=== PATIENT | male | born 1940 | race Caucasian/White ===

== ENCOUNTER 2017-10-15 08:55 | Outpatient (CLI) | payer MEDICARE, BC ==
[2017-10-15 09:48] LABS: BASOPHILS # (AUTO) 0.1 X10'3 (0-0.2); BASOPHILS % (AUTO) 0.9 % (0-1); EOSINOPHILS # (AUTO) 0.1 X10'3 (0-0.9); EOSINOPHILS % (AUTO) 0.7 % (0-6); LYMPHOCYTES # (AUTO) 1.2 X10'3 (1.1-4.8); LYMPHOCYTES % (AUTO) 17.4 % (21-51); MEAN CORPUSCULAR HEMOGLOBIN 30.3 PG (27.0-31.0); MEAN CORPUSCULAR HGB CONC 34.6 % (33.0-36.5); MEAN CORPUSCULAR VOLUME 87.6 FL (78-98); MEAN PLATELET VOLUME 10.6 FL (7.4-10.4); MONOCYTES # (AUTO) 0.4 X10'3 (0-0.9); NEUTROPHILS # (AUTO) 5.2 X10'3 (1.8-7.7); PLATELET COUNT 228 X10'3 (140-440); RED BLOOD COUNT 3.31 X10'6 (4.70-6.10); RED CELL DISTRIBUTION WIDTH 15.7 % (11.5-14.5)
[2017-10-15 09:54] LABS: CLARITY,URINE CLEAR (Clear); COLOR,URINE YELLOW (Yellow); GLUCOSE, URINE NEGATIVE (Neg); KETONES,URINE NEGATIVE (Neg); LEUKOCYTE ESTERASE ,URINE NEGATIVE (Neg); NITRITES, URINE NEGATIVE (Neg); OCCULT BLOOD,URINE NEGATIVE (Neg); PH,URINE 5.5 (4.8-8.0); PROTEIN,URINE NEGATIVE (Neg); UROBILINOGEN,URINE 0.2 E.U/dL (0.2-1.0)
[2017-10-15 09:56] LABS: UA COLLECTION TYPE CLN CATCH MIDSTREAM
[2017-10-15 09:58] LABS: PROTHROMBIN TIME 10.7 SECONDS (9.0-12.0)
[2017-10-15 10:02] LABS: LARGE PLATELETS FEW; PLATELET ESTIMATE NORMAL
[2017-10-15 10:04] LABS: ALANINE AMINOTRANSFERASE 15 U/L (12-78); ALKALINE PHOSPHATASE 60 IU/L (46-116); ANION GAP 9 (8-16); ASPARTATE AMINO TRANSFERASE 8 U/L (10-37); BILIRUBIN,TOTAL 4.3 MG/DL (0.1-1.0); BLOOD UREA NITROGEN 29 MG/DL (7-18); BUN/CREATININE RATIO 19.3 (5.4-32.0); CALCIUM 9.3 MG/DL (8.5-10.1); CHLORIDE 104 MMOL/L (99-107); GLUCOSE 152 MG/DL (70-104); POTASSIUM 4.3 MMOL/L (3.5-5.1); SODIUM 139 MMOL/L (135-145); TOTAL CARBON DIOXIDE 25.8 MMOL/L (24-32); eGFR 46 ML/MIN
[2017-10-15 10:14] LABS: HEMOGLOBIN A1C 5.7 % (4.5-6.2)
[2017-10-15 10:18] LABS: ALBUMIN/GLOBULIN RATIO 1.4 (1.1-1.5); TOTAL PROTEIN 6.8 G/DL (6.4-8.2)
== END 2017-10-15 23:59 | disposition home or self-care (01) ==
LOC: LAB 08:55
PROVIDERS: ATTEND Specialist
DX: Z01.818 Encounter for other preprocedural examination (principal); Z51.81 Encounter for therapeutic drug level monitoring; E11.8 Type 2 diabetes mellitus with unspecified complications; N39.0 Urinary tract infection, site not specified
CPT/HCPCS: 36415; 80053; 81003; 83036; 85025; 85610; 87070

== ENCOUNTER 2017-10-28 10:45 | Inpatient (IN) | payer MEDICARE, BC ==
[~2017-10-28] VITALS: Ht 177.8 cm; Wt 76.3 kg
[2017-11-14 12:19] LABS: BASOPHILS % (AUTO) 0.1 % (0-1); EOSINOPHILS # (AUTO) 0.1 X10'3 (0-0.9); EOSINOPHILS % (AUTO) 1.2 % (0-6); LYMPHOCYTES # (AUTO) 1.5 X10'3 (1.1-4.8); LYMPHOCYTES % (AUTO) 17.2 % (21-51); MEAN CORPUSCULAR HEMOGLOBIN 30.4 PG (27.0-31.0); MEAN CORPUSCULAR HGB CONC 34.5 % (33.0-36.5); MEAN PLATELET VOLUME 9.5 FL (7.4-10.4); MONOCYTES # (AUTO) 0.5 X10'3 (0-0.9); MONOCYTES % (AUTO) 5.5 % (2-12); NEUTROPHILS # (AUTO) 6.7 X10'3 (1.8-7.7); PRE OP HEMATOCRIT 36.6 % (42.0-52.0); PRE OP HEMOGLOBIN 12.6 g/dL (14.0-17.9); PRE OP PLATELET COUNT 219 X10'3 (140-440); RED BLOOD COUNT 4.15 X10'6 (4.70-6.10); RED CELL DISTRIBUTION WIDTH 16.1 % (11.5-14.5)
[2017-11-14] MEDS ORDERED: LOSA50TA3 PO (12:20)
[2017-11-14] MEDS ORDERED: GLIM4TAB79 PO (12:20)
[2017-11-14] MEDS ORDERED: METF500T7 PO (12:20)
[2017-11-14] MEDS ORDERED: PIOG15TA8 PO (12:20)
[2017-11-14 12:22] LABS: CLARITY,URINE CLEAR (Clear); COLOR,URINE YELLOW (Yellow); GLUCOSE, URINE >=1000 mg/dl (Neg); KETONES,URINE NEGATIVE (Neg); LEUKOCYTE ESTERASE ,URINE NEGATIVE (Neg); NITRITES, URINE NEGATIVE (Neg); OCCULT BLOOD,URINE NEGATIVE (Neg); PH,URINE 5.5 (4.8-8.0); PROTEIN,URINE NEGATIVE (Neg); UA COLLECTION TYPE CLN CATCH MIDSTREAM; UROBILINOGEN,URINE 0.2 E.U/dL (0.2-1.0)
[2017-11-14 12:27] LABS: BACTERIA,URINE FEW /HPF (Neg); MUCUS STRANDS FEW /LPF (Neg); RBC,URINE 0-2 /HPF (0-2); SQUAMOUS EPITHELIAL CELL,UR FEW /LPF (FEW); WBC,URINE 0-4 /HPF (0-4)
[2017-11-14 12:32] LABS: PRE OP PROTIME 10.3 SECONDS (9.0-12.0)
[2017-11-14 12:36] LABS: ALBUMIN 4.6 G/DL (3.4-5.0); ALKALINE PHOSPHATASE 69 IU/L (46-116); BLOOD UREA NITROGEN 19 MG/DL (7-18); BUN/CREATININE RATIO 13.3 (5.4-32.0); CHLORIDE 101 MMOL/L (99-107); CREATININE 1.43 MG/DL (0.60-1.10); PRE OP ALT 21 U/L (30-65); PRE OP ANION GAP 8 (8-16); PRE OP AST 12 U/L (10-37); PRE OP GLUCOSE 194 MG/DL (70-104); PRE OP POTASSIUM 3.9 MMOL/L (3.4-5.1); PRE OP SODIUM 135 MMOL/L (135-145); TOTAL CARBON DIOXIDE 26.4 MMOL/L (24-32); eGFR 48 ML/MIN
[2017-11-14 12:38] LABS: ALBUMIN/GLOBULIN RATIO 1.8 (1.1-1.5); TOTAL PROTEIN 7.2 G/DL (6.4-8.2)
[2017-11-18] MEDS ORDERED: ringers solution, lacted 1,000 ML IV SCH (05:00)
[2017-11-18] MEDS ORDERED: acetaminophen 325mg tablet PO ONE (05:30)
[2017-11-18] MEDS ORDERED: tranexamic acid inj. 1,500 MG in normal saline 100ml IV soln 85 ML IV ONE (05:30)
[2017-11-18] MEDS ORDERED: vancomycin inj 1,500 MG in normal saline 300ml IV soln IV ONE (05:30)
[2017-11-18] MEDS ORDERED: Cefazolin 2GM/50ML dext iso,osmotic IVPB IV ONE (05:30)
[2017-11-18] MEDS ORDERED: oxyCODONE SR 10mg (sust. release) tab PO ONE (05:30)
[2017-11-18] MEDS ORDERED: famotidine 20mg tablet PO ONE (05:30)
[2017-11-18] MEDS ORDERED: gabapentin 300mg capsule PO ONE (05:30)
[2017-11-18] MEDS ORDERED: celeCOXIB 100mg capsule PO ONE (05:30)
[2017-11-18] MEDS ORDERED: LIDOcaine 1% (10mg/ml) 2ml vial ONE (09:42)
[2017-11-18] MEDS ORDERED: bacitracin inj 150,000 UNIT in sodium chloride irrig. sol 3,000 ML IR ONE (11:00)
[2017-11-18 11:08] VITALS: BP 150/80
[2017-11-18 11:12] VITALS: BP 150/80
[2017-11-18 11:20] LABS: ALBUMIN 4.1 G/DL (3.4-5.0); ALKALINE PHOSPHATASE 66 IU/L (46-116); BLOOD UREA NITROGEN 18 MG/DL (7-18); BUN/CREATININE RATIO 12.8 (5.4-32.0); CALCIUM 8.7 MG/DL (8.5-10.1); CHLORIDE 102 MMOL/L (99-107); CREATININE 1.41 MG/DL (0.60-1.10); PRE OP ALT 20 U/L (30-65); PRE OP ANION GAP 12 (8-16); PRE OP AST 10 U/L (10-37); PRE OP SODIUM 136 MMOL/L (135-145); TOTAL CARBON DIOXIDE 22.5 MMOL/L (24-32); eGFR 49 ML/MIN
[2017-11-18 11:22] LABS: TOTAL PROTEIN 6.5 G/DL (6.4-8.2)
[2017-11-18 11:23] LABS: ALBUMIN/GLOBULIN RATIO 1.7 (1.1-1.5); PRE OP BILIRUB, TOTAL 5.5 MG/DL (0.0-1.0); PRE OP GLUCOSE 203 MG/DL (70-104)
[2017-11-18] MEDS ORDERED: insulin regular, human 10 units/0.1 ml syringe SQ ONE (11:50)
[2017-11-18] MEDS ORDERED: ROPIVAcaine 0.5% (5mg/ml) 30ml vial ONE (12:32)
== END 2017-11-18 13:08 | disposition home or self-care (01) | DRG 554 ==
LOC: EDSTATUS 10:45 → PAS IN 11-18 10:14 → EDSTATUS 11-18 13:30
PROVIDERS: ADMIT Specialist; ATTEND Specialist
DX: M17.12 Unilateral primary osteoarthritis, left knee (principal); D64.9 Anemia, unspecified; E11.9 Type 2 diabetes mellitus without complications; I10 Essential (primary) hypertension; Z53.9 Procedure and treatment not carried out, unspecified reason
CPT/HCPCS: 36415; 80053; 81001; 85025; 85610; 85730; 86885; 86900; 86901; 87070; J0690; J1815; J2795; J3370; J3490; J7030; J7120

== ENCOUNTER 2017-12-09 08:38 | Inpatient (IN) | payer MEDICARE, BC ==
[~2017-12-09] VITALS: Ht 177.8 cm; Wt 75.6 kg
[2017-12-09] VITALS (17 sets, daily range): BP systolic 109–143; BP diastolic 59–73
[~2017-12-09 08:38] MED LIST: Cefazolin 2GM/50ML dext iso,osmotic IVPB IV ONE; GLIM4TAB79 PO; LOSA50TA3 PO; METF500T7 PO; acetaminophen 325mg tablet PO ONE; celeCOXIB 100mg capsule PO ONE; famotidine 20mg tablet PO ONE; gabapentin 300mg capsule PO ONE; meperidine/PF 25mg/ml syringe IV PRN; morphine 4 MG/ML inj SYRINge IV PRN; ondansetron/PF 4mg/2ml inj IV PRN; oxyCODONE SR 10mg (sust. release) tab PO ONE; proCHLORperazine 10 MG/2 ml inj IV PRN; ringers solution, lacted 1,000 ML IV SCH; tranexamic acid inj. 1,000 MG in normal saline 100ml IV soln 90 ML IV ONE; vancomycin inj 1,500 MG in normal saline 300ml IV soln IV ONE
[2017-12-09 09:25] LABS: BASOPHILS % (AUTO) 0.3 % (0-1); EOSINOPHILS # (AUTO) 0.2 X10'3 (0-0.9); EOSINOPHILS % (AUTO) 2.1 % (0-6); LYMPHOCYTES # (AUTO) 1.2 X10'3 (1.1-4.8); LYMPHOCYTES % (AUTO) 13.8 % (21-51); MEAN CORPUSCULAR HEMOGLOBIN 30.5 PG (27.0-31.0); MEAN CORPUSCULAR HGB CONC 34.8 % (33.0-36.5); MEAN CORPUSCULAR VOLUME 87.7 FL (78-98); MONOCYTES # (AUTO) 0.4 X10'3 (0-0.9); MONOCYTES % (AUTO) 4.2 % (2-12); NEUTROPHILS # (AUTO) 6.9 X10'3 (1.8-7.7); NEUTROPHILS % (AUTO) 79.6 % (42-75); PRE OP HEMATOCRIT 29.2 % (42.0-52.0); PRE OP PLATELET COUNT 219 X10'3 (140-440); RED BLOOD COUNT 3.33 X10'6 (4.70-6.10); RED CELL DISTRIBUTION WIDTH 15.4 % (11.5-14.5)
[2017-12-09 09:29] LABS: PRE OP HEMOGLOBIN 10.2 g/dL (14.0-17.9)
[2017-12-09] MEDS ORDERED: bacitracin inj 150,000 UNIT in sodium chloride irrig. sol 3,000 ML IR ONE (09:30)
[2017-12-09] MEDS ORDERED: ROPIVAcaine 0.5% (5mg/ml) 30ml vial ONE ×2 (09:54→12:26)
[2017-12-09 09:59] LABS: ALBUMIN 4.1 G/DL (3.4-5.0); ALKALINE PHOSPHATASE 68 IU/L (46-116); BLOOD UREA NITROGEN 21 MG/DL (7-18); CHLORIDE 102 MMOL/L (99-107); CREATININE 1.31 MG/DL (0.60-1.10); PRE OP ALT 18 U/L (30-65); PRE OP ANION GAP 10 (8-16); PRE OP AST 11 U/L (10-37); PRE OP POTASSIUM 4.6 MMOL/L (3.4-5.1); PRE OP SODIUM 136 MMOL/L (135-145); TOTAL CARBON DIOXIDE 24.1 MMOL/L (24-32); eGFR 53 ML/MIN
[2017-12-09 10:00] LABS: ALBUMIN/GLOBULIN RATIO 1.7 (1.1-1.5); TOTAL PROTEIN 6.5 G/DL (6.4-8.2)
[2017-12-09 10:02] LABS: PRE OP GLUCOSE 227 MG/DL (70-104)
[2017-12-09 10:03] LABS: PRE OP BILIRUB, TOTAL 5.3 MG/DL (0.0-1.0)
[2017-12-09] MEDS ORDERED: PIOG45TA5 PO (10:08)
[2017-12-09] MEDS ORDERED: tranexamic acid inj. 1,500 MG in normal saline 100ml IV soln 85 ML IV ONE (10:15)
[2017-12-09] MEDS ORDERED: MIDAZolam 1mg/ml 10ml vial ONE (10:21)
[2017-12-09] MEDS ORDERED: fentaNYL/PF 50MCG/1 ML 2ML syringe ONE (10:22)
[2017-12-09] MEDS ORDERED: morphine /PF 1mg/ml 10ml inj. ONE (10:25)
[2017-12-09] MEDS ORDERED: insulin regular, human vial - multi-dose ONE (10:39)
[2017-12-09] MEDS ORDERED: naloxone 2mg/2ml inj 1.5 MG in normal saline 500ml IV soln 500 ML IV PRN (10:54)
[2017-12-09] MEDS ORDERED: ondansetron/PF 4mg/2ml inj IV PRN ×2 (10:55→12:35)
[2017-12-09] MEDS ORDERED: diphenhydrAMINE 50 mg/ml inj IV PRN (10:55)
[2017-12-09] MEDS ORDERED: magnesium hydroxide 30ml (MOM) UD suspension PO PRN (12:35)
[2017-12-09] MEDS ORDERED: diphenhydrAMINE 25mg capsule PO PRN ×2 (12:35)
[2017-12-09] MEDS ORDERED: acetaminophen 325mg tablet PO PRN (12:35)
[2017-12-09] MEDS ORDERED: oxyCODONE/APAP 10/325mg tablet PO PRN (12:35)
[2017-12-09] MEDS ORDERED: non-formulary drug (Metformin Hcl* (Metformin ER*) 1 TAB) PO SCH (12:35)
[2017-12-09] MEDS ORDERED: HYDROmorphone inj. 0.5 MG/0.5 ML DISP.SYRIN IV PRN (12:35)
[2017-12-09] MEDS ORDERED: bisacodyl 10mg suppository rectal RC PRN (12:35)
[2017-12-09] MEDS: gabapentin 300mg capsule PO SCH ×2 (13:00→20:28)
[2017-12-09] MEDS: potassium cl 20mEq in 1/2 NS 1,000 ML IV SCH ×2 (16:51→20:27)
[2017-12-09] MEDS: ceFAZolin 1GM/D5W- ADD-VANTAGE 50 ML IV SCH (16:52)
[2017-12-09] MEDS: ascorbic acid 500mg tablet PO SCH (20:00)
[2017-12-09] MEDS ORDERED: vancomycin/NS 1 GM ADD-VANTAGE 250 ML IV SCH (20:00)
[2017-12-09] MEDS: sennosides 8.6mg tablet PO SCH (20:28)
[2017-12-09] MEDS: losartan 50mg tablet PO SCH (20:28)
[2017-12-10 02:00] VITALS: BP 109/63
[2017-12-10] MEDS ORDERED: ceFAZolin 1GM/D5W- ADD-VANTAGE 50 ML IV ONE (02:05)
[2017-12-10] MEDS: ceFAZolin 1GM/D5W- ADD-VANTAGE 50 ML IV SCH (02:05)
[2017-12-10] MEDS: potassium cl 20mEq in 1/2 NS 1,000 ML IV SCH ×3 (04:34→20:34)
[2017-12-10 06:00] VITALS: BP 120/53
[2017-12-10 06:02] LABS: BASOPHILS % (AUTO) 0.4 % (0-1); EOSINOPHILS # (AUTO) 0.1 X10'3 (0-0.9); HEMATOCRIT 24.6 % (42.0-52.0); HEMOGLOBIN 8.6 g/dl (14.0-17.9); LYMPHOCYTES # (AUTO) 0.5 X10'3 (1.1-4.8); LYMPHOCYTES % (AUTO) 4.1 % (21-51); MEAN CORPUSCULAR HEMOGLOBIN 30.8 PG (27.0-31.0); MEAN CORPUSCULAR HGB CONC 35.2 % (33.0-36.5); MEAN CORPUSCULAR VOLUME 87.6 FL (78-98); MEAN PLATELET VOLUME 9.7 FL (7.4-10.4); MONOCYTES # (AUTO) 0.5 X10'3 (0-0.9); MONOCYTES % (AUTO) 4.4 % (2-12); NEUTROPHILS # (AUTO) 10.7 X10'3 (1.8-7.7); NEUTROPHILS % (AUTO) 90.1 % (42-75); PLATELET COUNT 210 X10'3 (140-440); WHITE BLOOD COUNT 11.9 X10'3 (4.5-11.0)
[2017-12-10 06:12] LABS: INR 1.2 INR; PROTHROMBIN TIME 12.7 SECONDS (9.0-12.0)
[2017-12-10 06:53] LABS: ALANINE AMINOTRANSFERASE 20 U/L (12-78); ALBUMIN 3.2 G/DL (3.4-5.0); ALBUMIN/GLOBULIN RATIO 1.5 (1.1-1.5); ALKALINE PHOSPHATASE 54 IU/L (46-116); ANION GAP 12 (8-16); ASPARTATE AMINO TRANSFERASE 11 U/L (10-37); BILIRUBIN,TOTAL 3.3 MG/DL (0.1-1.0); BLOOD UREA NITROGEN 22 MG/DL (7-18); BUN/CREATININE RATIO 15.3 (5.4-32.0); CALCIUM 7.8 MG/DL (8.5-10.1); CHLORIDE 101 MMOL/L (99-107); CREATININE 1.44 MG/DL (0.60-1.10); GLUCOSE 267 MG/DL (70-104); POTASSIUM 4.7 MMOL/L (3.5-5.1); SODIUM 134 MMOL/L (135-145); TOTAL CARBON DIOXIDE 21.3 MMOL/L (24-32); TOTAL PROTEIN 5.4 G/DL (6.4-8.2); eGFR 48 ML/MIN
[2017-12-10 10:00] VITALS: BP 122/58
[2017-12-10] MEDS ORDERED: warfarin 7.5mg tablet PO ONE (10:00)
[2017-12-10] MEDS: ascorbic acid 500mg tablet PO SCH ×2 (10:25→20:54)
[2017-12-10] MEDS: multivitamins, therapeutics tablet PO SCH (10:25)
[2017-12-10] MEDS: gabapentin 300mg capsule PO SCH ×3 (10:26→20:54)
[2017-12-10] MEDS ORDERED: metFORMIN 500mg tablet PO SCH (12:00)
[2017-12-10] MEDS ORDERED: NUT.TX.GLUC.INTOLER,LAC-FR,SOY (GLUCERNA) 237 ML PO SCH (13:00)
[2017-12-10 14:00] VITALS: BP 105/51
[2017-12-10] MEDS: oxyCODONE/APAP 10/325mg tablet PO PRN ×2 (16:37→20:54)
[2017-12-10] MEDS ORDERED: dextrose 50%-water 50ml dispensing syringe IV PRN ×2 (17:40)
[2017-12-10] MEDS ORDERED: dextrose ORAL solution 15 GM/59 ML bottle PO PRN ×2 (17:40)
[2017-12-10] MEDS ORDERED: glucagon, human recombinant 1mg kit SUBCUT PRN (17:40)
[2017-12-10] MEDS ORDERED: MESSAGE TO PHARMACY PO ONE (17:40)
[2017-12-10 18:00] VITALS: BP 132/58
[2017-12-10] MEDS: insulin Lispro (HumaLOG) vial - multi-dose SQ SCH ×2 (18:53→20:51)
[2017-12-10] MEDS: celeCOXIB 100mg capsule PO SCH (20:54)
[2017-12-10] MEDS: losartan 50mg tablet PO SCH (20:54)
[2017-12-10] MEDS: sennosides 8.6mg tablet PO SCH (20:54)
[2017-12-10] MEDS ORDERED: insulin glargine (Lantus) pen - multi-dose SQ SCH (21:00)
[2017-12-10 22:00] VITALS: BP 120/52
[2017-12-11] MEDS: potassium cl 20mEq in 1/2 NS 1,000 ML IV SCH (04:34)
[2017-12-11] MEDS: oxyCODONE/APAP 10/325mg tablet PO PRN ×2 (05:27→10:05)
[2017-12-11 05:39] LABS: BASOPHILS % (AUTO) 0.3 % (0-1); EOSINOPHILS # (AUTO) 0.2 X10'3 (0-0.9); EOSINOPHILS % (AUTO) 2.2 % (0-6); HEMOGLOBIN 8.8 g/dl (14.0-17.9); LYMPHOCYTES # (AUTO) 1.3 X10'3 (1.1-4.8); LYMPHOCYTES % (AUTO) 13.4 % (21-51); MEAN CORPUSCULAR HEMOGLOBIN 30.9 PG (27.0-31.0); MEAN CORPUSCULAR HGB CONC 35.3 % (33.0-36.5); MEAN CORPUSCULAR VOLUME 87.7 FL (78-98); MEAN PLATELET VOLUME 9.6 FL (7.4-10.4); MONOCYTES # (AUTO) 0.8 X10'3 (0-0.9); MONOCYTES % (AUTO) 8.2 % (2-12); NEUTROPHILS # (AUTO) 7.1 X10'3 (1.8-7.7); NEUTROPHILS % (AUTO) 75.9 % (42-75); PLATELET COUNT 205 X10'3 (140-440); RED BLOOD COUNT 2.85 X10'6 (4.70-6.10); RED CELL DISTRIBUTION WIDTH 15.9 % (11.5-14.5); WHITE BLOOD COUNT 9.3 X10'3 (4.5-11.0)
[2017-12-11 05:46] LABS: INR 1.4 INR; PROTHROMBIN TIME 14.5 SECONDS (9.0-12.0)
[2017-12-11 05:58] LABS: ALANINE AMINOTRANSFERASE 15 U/L (12-78); ALBUMIN 3.3 G/DL (3.4-5.0); ALBUMIN/GLOBULIN RATIO 1.3 (1.1-1.5); ALKALINE PHOSPHATASE 54 IU/L (46-116); ANION GAP 6 (8-16); ASPARTATE AMINO TRANSFERASE 9 U/L (10-37); BILIRUBIN,TOTAL 3.6 MG/DL (0.1-1.0); BLOOD UREA NITROGEN 20 MG/DL (7-18); BUN/CREATININE RATIO 13.4 (5.4-32.0); CALCIUM 8.4 MG/DL (8.5-10.1); CHLORIDE 104 MMOL/L (99-107); CREATININE 1.49 MG/DL (0.60-1.10); GLUCOSE 163 MG/DL (70-104); POTASSIUM 3.9 MMOL/L (3.5-5.1); SODIUM 138 MMOL/L (135-145); TOTAL CARBON DIOXIDE 28.3 MMOL/L (24-32); TOTAL PROTEIN 5.8 G/DL (6.4-8.2); eGFR 46 ML/MIN
[2017-12-11 06:00] VITALS: BP 119/57
[2017-12-11] MEDS ORDERED: ASPI-41 PO (06:13)
[2017-12-11] MEDS ORDERED: WALKERFR (06:14)
[2017-12-11] MEDS: insulin Lispro (HumaLOG) vial - multi-dose SQ SCH (08:30)
[2017-12-11] MEDS: celeCOXIB 100mg capsule PO SCH (08:46)
[2017-12-11] MEDS: gabapentin 300mg capsule PO SCH (08:46)
[2017-12-11] MEDS: ascorbic acid 500mg tablet PO SCH (08:46)
[2017-12-11] MEDS: multivitamins, therapeutics tablet PO SCH (08:46)
[2017-12-11] MEDS ORDERED: warfarin 4mg tablet PO ONE (10:00)
[2017-12-11] MEDS ORDERED: acetaminophen 325mg tablet PO PRN (12:35)
== END 2017-12-11 10:20 | disposition home health service (06) | DRG 470 ==
LOC: PAS IN 08:38 → EDSTATUS 10:45 → ORTHO 4S 14:05 → EDSTATUS 12-10 07:30
PROVIDERS: ADMIT Specialist; ATTEND Specialist
PROC: 3E0T3BZ Introduction of Anesthetic Agent into Peripheral Nerves and Plexi, Percutaneous Approach (ICD-10-PCS; 2017-12-09)
PROC: 0SRD0J9 Replacement of Left Knee Joint with Synthetic Substitute, Cemented, Open Approach (ICD-10-PCS; principal; 2017-12-09 10:16)
DX: M17.12 Unilateral primary osteoarthritis, left knee (principal); D62 Acute posthemorrhagic anemia; E11.9 Type 2 diabetes mellitus without complications; M21.162 Varus deformity, not elsewhere classified, left knee; I10 Essential (primary) hypertension; M25.762 Osteophyte, left knee; Z79.899 Other long term (current) drug therapy; Z90.49 Acquired absence of other specified parts of digestive tract; Z98.49 Cataract extraction status, unspecified eye; Z79.84 Long term (current) use of oral hypoglycemic drugs
CPT/HCPCS: 36415; 73560; 80053; 82948; 85025; 85610; 86885; 86900; 86901; 97110; 97116; 97162; 97530; A6449; A6455; A7000; C1713; C1758; C1776; J0690; J1815; J2250; J2274; J2795; J3010; J3370; J7030; J7120

== ENCOUNTER 2018-04-08 09:20 | Outpatient (CLI) | payer MEDICARE, BC ==
[~2018-04-08 09:20] MED LIST changes: -Cefazolin 2GM/50ML dext iso,osmotic IVPB IV ONE; +WALKERFR; -acetaminophen 325mg tablet PO ONE; -celeCOXIB 100mg capsule PO ONE; -famotidine 20mg tablet PO ONE; -gabapentin 300mg capsule PO ONE; -meperidine/PF 25mg/ml syringe IV PRN; -morphine 4 MG/ML inj SYRINge IV PRN; -ondansetron/PF 4mg/2ml inj IV PRN; -oxyCODONE SR 10mg (sust. release) tab PO ONE; -proCHLORperazine 10 MG/2 ml inj IV PRN; -ringers solution, lacted 1,000 ML IV SCH; -tranexamic acid inj. 1,000 MG in normal saline 100ml IV soln 90 ML IV ONE; -vancomycin inj 1,500 MG in normal saline 300ml IV soln IV ONE
[2018-04-08 10:01] LABS: HEMATOCRIT 29.6 % (42.0-52.0); MEAN CORPUSCULAR HEMOGLOBIN 29.7 PG (27.0-31.0); MEAN CORPUSCULAR HGB CONC 33.9 % (33.0-36.5); MEAN CORPUSCULAR VOLUME 87.7 FL (78-98); MEAN PLATELET VOLUME 9.8 FL (7.4-10.4); PLATELET COUNT 237 X10'3 (140-440); RED BLOOD COUNT 3.37 X10'6 (4.70-6.10); RED CELL DISTRIBUTION WIDTH 16.9 % (11.5-14.5); WHITE BLOOD COUNT 5.9 X10'3 (4.5-11.0)
== END 2018-04-08 23:59 | disposition home or self-care (01) ==
LOC: LAB 09:20
PROVIDERS: ATTEND Specialist
DX: E80.7 Disorder of bilirubin metabolism, unspecified (principal); D64.9 Anemia, unspecified; D50.9 Iron deficiency anemia, unspecified; I10 Essential (primary) hypertension; E11.9 Type 2 diabetes mellitus without complications; Z98.890 Other specified postprocedural states
CPT/HCPCS: 36415; 82247; 85027

== ENCOUNTER 2018-11-24 08:40 | Outpatient (CLI) | payer MEDICARE, BC ==
[~2018-11-24 08:40] MED LIST changes: +GLIM4TAB4 PO; -GLIM4TAB79 PO; +METF500T20 PO; -METF500T7 PO
[2018-11-24 09:49] LABS: BASOPHILS % (AUTO) 0.5 % (0-1); EOSINOPHILS # (AUTO) 0.1 X10'3 (0-0.9); EOSINOPHILS % (AUTO) 1.3 % (0-6); LYMPHOCYTES # (AUTO) 1.2 X10'3 (1.1-4.8); LYMPHOCYTES % (AUTO) 17.2 % (21-51); MEAN CORPUSCULAR HEMOGLOBIN 31.2 PG (27.0-31.0); MEAN CORPUSCULAR HGB CONC 34.3 g/dL (33.0-36.5); MONOCYTES # (AUTO) 0.4 X10'3 (0-0.9); MONOCYTES % (AUTO) 5.8 % (2-12); NEUTROPHILS # (AUTO) 5.1 X10'3 (1.8-7.7); NEUTROPHILS % (AUTO) 75.2 % (42-75); PLATELET COUNT 206 X10'3 (140-440); RED BLOOD COUNT 3.52 X10'6 (4.70-6.10); RED CELL DISTRIBUTION WIDTH 15.5 % (11.5-14.5); WHITE BLOOD COUNT 6.8 X10'3 (4.5-11.0)
[2018-11-24 09:58] LABS: ALANINE AMINOTRANSFERASE 18 U/L (12-78); ALBUMIN 4.2 G/DL (3.4-5.0); ALKALINE PHOSPHATASE 57 IU/L (46-116); ANION GAP 11 (8-16); ASPARTATE AMINO TRANSFERASE 10 U/L (10-37); BILIRUBIN,TOTAL 5.5 MG/DL (0.1-1.0); BLOOD UREA NITROGEN 26 MG/DL (7-18); BUN/CREATININE RATIO 18.6 (5.4-32.0); CALCIUM 9.3 MG/DL (8.5-10.1); CHLORIDE 106 MMOL/L (99-107); GLUCOSE 164 MG/DL (70-104); POTASSIUM 4.3 MMOL/L (3.5-5.1); SODIUM 141 MMOL/L (135-145); TOTAL CARBON DIOXIDE 24.4 MMOL/L (24-32); eGFR 49 ML/MIN
[2018-11-24 10:00] LABS: ALBUMIN/GLOBULIN RATIO 1.6 (1.1-1.5); TOTAL PROTEIN 6.8 G/DL (6.4-8.2)
== END 2018-11-24 23:59 | disposition home or self-care (01) ==
LOC: LAB 08:40
PROVIDERS: ATTEND Family Medicine
DX: E11.9 Type 2 diabetes mellitus without complications (principal); R17 Unspecified jaundice; I10 Essential (primary) hypertension; Z12.5 Encounter for screening for malignant neoplasm of prostate
CPT/HCPCS: 36415; 80053; 83036; 84153; 85025; 85610